=== PATIENT | male | born 1970 | race Caucasian/White ===

== ENCOUNTER 2020-01-04 13:01 | Emergency (ER) | payer OTHER, SELFPAY ==
--- NOTE | 2020-01-04 13:00 | DI.RAD_ITS ---
EXAM: XR SHOULDER RT COMPLETE 2+V CLINICAL HISTORY: Pain, repetitive motion. TECHNIQUE: 2D digital imaging was performed. COMPARISON: No exams were available for comparison FINDINGS: BONES: No acute fracture is present. No bony destructive lesion is seen. JOINTS: No dislocation present. Mild degenerative changes at the acromioclavicular joint. SOFT TISSUE: Normal. IMPRESSION: Mild degenerative changes of the AC joint. DATA REPOSITORY: RADIATION DOSE DELIVERED:
[2020-01-04 13:06] VITALS: BP 117/91; PULSE 86; TEMP 36.7; O2SAT 96
--- NOTE | 2020-01-04 14:07 | ED.GENADUL_ITS ---
Discharge Plan Disposition Patient Disposition: HOME Condition: Stable Discharge Details Clinical Impression: Shoulder pain Primary Care Provider: Brandi Cheney ED Provider: Owen Castillo Home Meds and New Rx's Prescriptions: No Action No Known Home Meds RF: 0 Discharge Instructions Instructions: Shoulder Pain (ED) Additional Instructions: Eknf-gwh-qzqnpyj medication such as Naprosyn or naproxen as directed. Gentle stretching as tolerated. Cool and/or warm compresses every 2 hours for 20 minutes. Please watch for new or worsening symptoms and return to the ER for any concerns. I am giving you the name and number of our local PD, Dr. Tran. If you are not seeing any improvement over the next 5-7 days with more conservative therapy, I would follow-up with orthopedics. Outpatient evaluation, PT, cortisone injection, etc. may all be indicated. Referrals: Andrez Tran MD [ [facility] STAFF PHYSICIAN] - Medical Decision Making 49-year-old gentleman who is right-hand dominant, presents with right shoulder pain for 2 months. Clinically he presents more like a calcific tendinitis, impingement syndrome, etc. versus acute fracture, dislocation, rotator cuff tear, etc. Given symptoms of been going on for 2 months I do believe an x-ray at this time is reasonable. Patient is agreeable to this plan. He appears well, nontoxic. Neuro, tendon, vascular intact. X-ray of the right shoulder read by me as no acute fracture. Radiology agrees and believes there is mild degenerative changes at the AC joint. Clinically patient does not have point tenderness over the AC joint. Discussed x-ray findings and treatment with patient. He declined sling. He is agreeable to a trial therapy of oral anti-inflammatories, gentle stretching, cool and/or warm compresses. I will give him the name and number of our local orthopedic team to follow-up with if he is not doing better with conservative therapy. He understands that outpatient work-up including physical therapy, cortisone injection, MRI, etc. it may all be indicated. Medical Records Medical records reviewed: Yes I reviewed the patient's medical records. HPI General Mode of arrival: ambulatory . Date/Time Provider Initiated Documentation: 01/04/20 13:10 . Limitations to Documentation: no limitations . Information obtained by: patient . HPI Narrative: This is a 49-year-old gentleman who is right-hand dominant, denies significant past medical history. He reports at work he does lifting, repetitive motion, etc. Roughly 2 months ago he went to toss something, was working around I level, and felt pain in his right shoulder. The pain has been constant, it is worse with movement especially over 90 degrees. Occasionally he gets shooting pains down his right arm. He denies any true numbness, tingling, weakness. Denies any pain that radiates into his back or into his chest. He has not tried any bhrw-nnm-aujtpxw medications for his symptoms. He was researching online, wonders if a cortisone injection would help Related Data Home Medications Medication Instructions Recorded Confirmed Unknown [No Known Home Meds] 01/04/20 01/04/20 Allergies Allergy/AdvReac Type Severity Reaction Status Date / Time No Known Allergies Allergy Unverified 01/04/20 13:10 General Stated Complaint: Orthopedic OUSMANE: 4 Review of Systems Constitutional Constitutional: Denies fever(s) and Denies weakness Cardiovascular Cardiovascular: Denies chest pain and Denies dyspnea Respiratory Respiratory: Denies cough and Denies dyspnea Musculoskeletal Musculoskeletal: Denies back pain, Reports arthralgias, Denies numbness, Denies stiffness and Denies tingling Integumentary/Breasts Skin/Breast: Denies erythema Neurologic Neurologic: Denies numbness, Denies tingling and Denies weakness [facility], [facility] Social History Smoking/Tobacco Use Status: Never Smoking risk assessment performed?: Yes Alcohol Intake: never Drug use: Never Substance use type: does not use Do you feel safe at home: Yes Do you feel safe in your relationship?: Yes Exam Const General: cooperative, healthy appearing, comfortable and no acute distress Orientation: alert and awake [facility] Head: normal to inspection, normocephalic and atraumatic Eyes Conjunctivae: conjunctivae normal Sclera: sclerae normal Neck Neck: normal visual inspection, full ROM, trachea midline, supple and nontender Resp Effort & Inspection: normal respiratory effort and able to speak in complete sentences Cardio Rate: regular rate Rhythm: regular rhythm Back/Spine/Pelvis Back: No back tenderness Skin General skin exam: no rashes or lesions noted Neuro General: patient alert, patient awake, patient oriented x3, moves all extremities and no focal motor deficits Cognition: normal cognition Speech: speech normal Gait: normal gait Motor: muscle tone normal throughout and strength 5/5 throughout Sensory Exam: no sensory deficits noted Extrem General: normal to inspection and capillary refill normal Right upper extremity: normal to inspection, normal capillary refill, shoulder/upper arm Details: normal to inspection, axillary nerve sensory function normal and abnormal ROM (Decreased range of motion secondary to discomfort, especially over 90 degrees) Details: pain with active ROM; no swelling, no ecchymosis, no crepitus, no deformity and no unusual warmth, elbow/forearm (Unremarkable) and wrist (Unremarkable) Left upper extremity: normal to inspection, full ROM and normal capillary refill Psych Appearance: grossly normal Mental Status: mental status grossly normal Course Vital Signs Vital signs: Vital Signs Temperature 36.7 C 01/04/20 13:06 Pulse 86 01/04/20 13:06 Blood Pressure 117/91 H 01/04/20 13:06 Pulse Oximetry 96 01/04/20 13:06 Temperature 36.7 C 01/04/20 13:06 Temperature Source Temporal Artery Scan 01/04/20 13:06 Pulse 86 01/04/20 13:06 Respiratory Effort Non-Labored 01/04/20 13:08 Blood Pressure 117/91 H 01/04/20 13:06 Blood Pressure Position Sitting 01/04/20 13:06 Pulse Oximetry 96 01/04/20 13:06 Oxygen Delivery Method Room Air 01/04/20 13:06 Oxygen Flow Rate 0 01/04/20 13:06 Pain Level 8 01/04/20 13:06
== END 2020-01-04 14:25 | disposition home or self-care (01) ==
PROVIDERS: Emergency Provider Physician Assistant; PCP Nurse Practitioner Family
DX: M25.511 Pain in right shoulder (principal); M70.811 Other soft tissue disorders related to use, overuse and pressure, right shoulder
CPT/HCPCS: 99283; 73030

== ENCOUNTER → 2020-02-25 14:56 | Outpatient (REF) | payer OTHER, SELFPAY ==
[2020-02-25 13:38] LABS: Anion Gap 8.7 mmol/L (3-11); BUN 17 mg/dL (7-18); CO2 24.3 mmol/L (21.0-32.0); Calcium 8.9 mg/dL (8.5-10.1); Calculated LDL 151 mg/dL (<100); Chloride 108 mmol/L (98-107); Cholesterol 238 mg/dL (<200); Glucose 119 mg/dL (74-106); HDL Cholesterol 48 mg/dL (40-60); Potassium 4.3 mmol/L (3.5-5.1); Sodium 141 mmol/L (136-145); Triglyceride 197 mg/dL (<150)
== END ==
LOC: NCHCN 14:56
PROVIDERS: PCP Nurse Practitioner Family; Visit Provider Nurse Practitioner Family
DX: Z00.00 Encounter for general adult medical examination without abnormal findings (principal); R53.83 Other fatigue
CPT/HCPCS: 80048; 80061

== ENCOUNTER 2020-08-08 08:38 | Outpatient (CLI) | payer OTHER, SELFPAY ==
--- NOTE | 2020-08-08 08:50 | DI.RAD_ITS ---
Exam(s) XR SHOULDER RT COMPLETE 2+V XR HUMERUS RT EXAM: XR SHOULDER RT COMPLETE 2+V CLINICAL HISTORY: right shoulder pain TECHNIQUE: COMPARISON: CR XR SHOULDER RT COMPLETE 2+V from 01/04/2020 CR XR HUMERUS RT from 08/08/2020 CR XR HUMERUS RT from 08/08/2020 FINDINGS: Two views of the shoulder and two views of the humerus were obtained. There is a metallic foreign maria e dy projected in the proximal to mid medial upper arm. There are minimal hypertrophic degenerative ch anges of the AC joint glenohumeral joint. No other significant bony or soft tissue abnormality seen involving the shoulder or humerus. IMPRESSION: RADIATION DOSE DELIVERED: Total DLP
== END 2020-08-08 08:39 | disposition home or self-care (01) ==
PROVIDERS: PCP Nurse Practitioner Family; Referring Provider Nurse Practitioner Family; Visit Provider Student in an Organized Health Care Education/Training Program
DX: M25.511 Pain in right shoulder (principal); M79.5 Residual foreign body in soft tissue
CPT/HCPCS: 73030; 73060

== ENCOUNTER 2020-08-24 02:14 | Outpatient (CLI) | payer OTHER, SELFPAY ==
--- NOTE | 2020-08-24 06:45 | DI.MRI_ITS ---
Exam(s) MR UPPER JOINT RT WO EXAM: MR UPPER JOINT RT WO CLINICAL HISTORY: r/o rotator cuff tear,RT SHOULDER PAIN, M25.511. TECHNIQUE: Multiplanar multisequence MRI was performed. COMPARISON: Plain films 08 August 2020 FINDINGS: A metallic density seen in the soft tissues in the upper arm on previous plain films creates artifact in the lower portion of the images and limits fat suppression. Bones: There is no fracture or contusion pattern. The acromioclavicular joint is normal. There is a small am ount of fluid in the subacromial subdeltoid and subcoracoid versus. There is minimal glenohumeral jagruti int fluid.. Rotator Cuff: The supraspinatus tendon shows a full-thickness tear anteriorly with retraction. There is no signifi cant muscle atrophy. The infraspinatus tendon is intact. The subscapularis and teres minor are norm al. Labrum and biceps anchor: The biceps tendon is located. The anchor is well maintained. The labrum is within normal limits. IMPRESSION: Full-thickness tear with retraction of the supraspinatus tendon. DATA REPOSITORY:
== END 2020-08-24 02:34 ==
PROVIDERS: PCP Nurse Practitioner Family; Visit Provider Student in an Organized Health Care Education/Training Program
DX: M75.101 Unspecified rotator cuff tear or rupture of right shoulder, not specified as traumatic (principal); M75.81 Other shoulder lesions, right shoulder
CPT/HCPCS: 73221

== ENCOUNTER 2021-05-11 03:19 | Outpatient (CLI) | payer OTHER, SELFPAY ==
[2021-05-11 11:46] LABS: Source Nasal/Nares
[2021-05-11 14:25] LABS: COVID-19 PCR Negative (Negative)
== END 2021-05-11 03:20 | disposition home or self-care (01) ==
LOC: LBO 03:19
PROVIDERS: Surgery; PCP Nurse Practitioner Family; Visit Provider Surgery
DX: Z20.822 Contact with and (suspected) exposure to COVID-19 (principal)
CPT/HCPCS: 87635

== ENCOUNTER 2021-05-14 10:41 | Day surgery (SDC) | payer OTHER, SELFPAY ==
--- NOTE | 2021-05-14 07:12 | COLE_ITS ---
Colonoscopy Report Date of procedure: 05/14/21 Pre-op diagnosis general: Colon Cancer Screening Post-op diagnosis procedure note: other (rectal polyp) Procedure: Colonoscopy with polypectomy Surgeon: Patricia Davis Anesthesia Type: General:No Airway Estimated blood loss (mL): 3 Pathology: other (rectal polyp) Complications: None Disposition: same day Indications: The patient is here for Colonoscopy pre-op. He has no family history of colon cancer. He has not had any bowel habit changes. -Discussed colonoscopy bowel prep as well as the procedure. Discussed possible complications of the procedure to include bleeding, pain, perforation, missed small lesion/polyp, sore throat, aspiration and adverse reaction to the medications. Questions were answered to patient?s satisfaction. No guarantees were implied or given.? Prep: Miralax/Dulcolax Procedure Start Time: 12:09 Procedure End Time: 12:29 Retraction Time: 11 minutes Findings: One polyp Procedure Description: After informed consent was obtained the patient was taken to the procedure room and placed in a left decubitous position. Monitors were applied and a time out was done. The patients name, date of , procedure, allergies to medications and metal in their body was reviewed. The patient was then sedated. Once sedated and comfortable a rectal exam was done. External exam was normal. Internal exam revealed a normal sphincter tone and no palpable masses. The prostate felt smooth. The scope was then introduced and retro-flexed. No internal hemorrhoids, polyps or masses were identified on retro-flexion. The scope was then advanced to the cecum without difficulty. The ileocecal vlave and appendiceal orifice were identified. The prep was adequate. The scope was then slowly retracted over 11 minutes back into the rectum. Polyps were removed with cold forceps in the rectum. There was no diverticulosis noted. The scope was removed and the patient was woken up and taken back to Same day surgery in stable condition. The patient tolerated the procedure well and there were no immediate co mplications. Follow up: The patient should follow up in 3-5 years unless they develop changes in bowel habits or other new gastrointestinal complaints.
--- NOTE | 2021-05-14 07:14 | W.PM.DSUDISC ---
Discharge Plan Disposition Patient Disposition: HOME Condition: Good Discharge Details Reason For Visit: Colonoscopy Attending Provider: Patricia Davis Primary Care Provider: Brandi Cheney Home Meds and New Rx's Prescriptions: Discontinued bisacodyl [Dulcolax (bisacodyl)] 5 mg tablet,delayed release (DR/EC) 5 mg PO ONCE Qty: 4 0RF Rx Instructions: Take according to provider's instructions for colonoscopy prep. polyethylene glycol 3350 17 gram/dose powder 17 g PO ONCE Qty: 238 0RF Rx Instructions: To be taken as directed by prescriber's office for colonoscopy prep. Discharge Instructions Additional Instructions: Findings: one polyp Follow up: 5 years Please call if you develop: fevers >101.5 Nausea or Vomiting Abdominal pain that is not transient Rectal bleeding that is more then a tbsp A hard abdomen and inability to pass gas DAY SURGERY UNIT POST ENDOSCOPY INSTRUCTIONS Instructions for everyone who is given Anesthesia: For your safety, please do the following for the next 24 Hours: a. Do not drive or operate dangerous equipment b. Do not drink alcohol beverages or use any recreational drugs for the first 24 hours or while taking pain medications. The medications in your body may have a reaction that can be dangerous. c. Do not make any important decisions or sign any important papers 1. Generally there are no restrictions on your activity after a day or so has gone by, but you may feel a bit fatigued for a few days. 2. After you arrive home you may have a light meal and return to a normal diet as you can tolerate it without feeling sick to your stomach. 3. After surgery, you may feel pain or discomfort. This should be only transient, but if it persists please contact your doctor. 4. If there are any questions regarding the findings of your procedure, please feel free to contact your doctor. 6. If you are unable to contact your doctor with a problem, contact the hospital at [phone]. 7. Continue all your regular medications unless directed otherwise. I understand the above instructions and have no questions. Signature of Patient or Responsible Adult Escort Date/Time Name of Responsible Adult Escort Signature of Nurse Date/Time Activity:: Activity as Tolerated Diet:: As Tolerated Discharge Orders Discharge Orders: Discharge Order (Routine); Ordered 05/14/21 Ordered By: Patricia Davis
[2021-05-14 11:16] VITALS: BP 125/96; PULSE 75; RESP 18; TEMP 36.3; O2SAT 99
[2021-05-14] MEDS: Lactated Ringers 1,000 ML 80 ML IV (11:47)
--- NOTE | 2021-05-14 11:52 | W.ANESPRE ---
General Info Date of Service Date Performed: 05/14/21 Height: 5 ft 8 in Weight: 90.945 kg Body Mass Index (BMI): 30.4 Surgical Procedure: Operation Date: 05/14/21 11:50 Proposed Procedure Side Surgeon p Colonoscopy Patricia Davis MD Meds Allergies and Home Medications Allergies Allergy/AdvReac Type Severity Reaction Status Date / Time No Known Allergies Allergy Unverified 05/03/21 09:00 Home Medication Medication Instructions Recorded bisacodyl 5 mg tablet,delayed 5 mg PO ONCE #4 tab 05/03/21 release (Dulcolax (bisacodyl)) polyethylene glycol 3350 17 17 g PO ONCE #238 g 05/03/21 gram/dose oral powder Current Visit Medications: Current Medications Generic Name Dose Route Start Last Admin Trade Name Freq PRN Reason Stop Dose Admin Hyoscyamine Sulfate 0.125 mg 05/14/21 07:14 Hyoscyamine 0.125 Mg Sl/Oral/Chew SL DIRECTED PRN Ringer's Solution 1,000 mls @ 80 mls/hr 05/14/21 06:00 05/14/21 11:47 IV 06/10/21 23:59 80 mls/hr INFUSION JORGE Administration IV Miscellaneous Supplies 1 each 05/14/21 06:00 Iv Access IV 06/10/21 23:59 DIRECTED JORGE Ondansetron HCl 4 mg 05/14/21 07:14 Ondansetron 4 Mg/2 Ml Vial IVP Q4H PRN PRN Nausea / Vomiting Sodium Chloride 0 ml 05/14/21 06:00 Normal Saline Flush 10 Ml Syr IV 06/10/21 23:59 PRN PRN Sodium Chloride 0 ml 05/14/21 06:00 Normal Saline 10 Ml Vial IJ 06/10/21 23:59 DIRECTED PRN Sterile Water 0 ml 05/14/21 06:00 Water,Injection,Sterile 10 Ml Vial IJ 06/10/21 23:59 DIRECTED PRN PFSH Active Problems Active Problems: Problem Status Onset Code Alcohol use Z72.89 Screening for colon cancer Z12.11 Medical History Medical History Foreign body (FB) in soft tissue Impingement syndrome of right shoulder No-show for appointment Tendonitis of long head of biceps brachii of right shoulder Traumatic incomplete tear of right rotator cuff Tobacco Smoking/Tobacco Use Status: Never Alcohol Alcohol Intake: never Details: Reports drinking 6 pk/day Substance Use Substance use: Never Substance use type: does not use Vital Signs and Lab Results Vital Signs Most Recent Vital Signs in EMR: Most Recent Vital Signs Temp Pulse Resp BP Pulse Ox 36.3 C L 75 18 125/96 H 99 05/14/21 11:16 05/14/21 11:16 05/14/21 11:16 05/14/21 11:16 05/14/21 11:16 Lab Results Blood Type / Crossmatch: No Data to Display Complete Blood Count: No Data to Display Complete Metabolic Panel: No Data to Display Liver Function Panel: No Data to Display Coagulation Panel: No Data to Display Cardiac Panel: No Data to Display Arterial Blood Gas: No Data to Display Venous Blood Gas: No Data to Display Pancreas Panel: No Data to Display Thyroid Panel: No Data to Display Infectious Disease: Coronavirus (COVID-19)(PCR) Negative (Negative) 05/11/21 08:40 05/11/21 Coronavirus 2019 Source Nasal/Nares 05/11/21 08:40 05/11/21 Blood Cultures: No Data to Display Toxicology Panel: No Data to Display Anesthesia Assessment and Plan Anesthesia History Personal History: No History of General Anesthesia Family History: No Family History of Anesthesia Complications Exercise Tolerance Exercise Tolerance: Metabolic Equivalents>4 Pertinent Negatives Pertinent Negatives: No Symptoms of GERD Cardiac & Pulmonary Exam Cardiac Exam: Normal S1/S2 Heart Sounds Pulmonary Exam: Clear Bilateral Breath Sounds Implantable Cardiac Device Does patient have a Pacemaker or an ICD?: No Airway Exam Known Difficult Airway: No Mallampati Class: 1 Mouth Opening: Normal (> 3cm) Thyromental Distance: Greater than 3 cm Neck Range of Motion: Full ROM Neck Circumference: Normal Teeth Condition: Normal Dentition ASA Classification ASA Score: ASA 2 Emergency Case?: No NPO Status NPO Status: NPO Clears >2 hours, Solids >8 hours Anesthesia Plan Resuscitation Status: Full Code Anesthesia Technique: General Anesthesia Airway Planned: Natural Airway Monitors Used: Standard Monitors
[2021-05-14 11:54] VITALS: BMI 30.4
--- NOTE | 2021-05-14 12:26 | BOWEL_PTH ---
PATIENT: Ethan Sharif LOC: [facility] U#:[id number] AGE/SX: 51/M ROOM: RE05/14/[address]: Patricia Davis MD : 1970 BED: DIS: 05/14/2021 SPEC #: [id number] RECD: 05/14/21 13:12 STATUS: [facility] #: [id number] CARLOS: 05/14/21 12:[address]: Patricia Davis DEPT: Surgical Specimen RECD BY: Danita Hugo ENTERED: 05/14/21 13:13 SP TYPE: Bowel OTHR DR: Brandi Cheney Tissues: 1 - BIOPSY BOWEL Procedures: GROSS AND MICRO LEVEL 4 Comments: [id number]
[2021-05-14 12:38] VITALS: BP 118/82; PULSE 95; RESP 16; TEMP 36.1; O2SAT 93
--- NOTE | 2021-05-14 13:00 | W.ANESPOSTOP ---
Postoperative Evaluation Date, Time and Location Date Performed: 05/14/21 Time Performed: 12:45 Patient Location: Day Surgery Unit Vital Signs Most Recent Imported Vital Signs: Most Recent Vital Signs Temp Pulse Resp BP Pulse Ox 36.1 C L 95 H 16 118/82 93 05/14/21 12:38 05/14/21 12:38 05/14/21 12:38 05/14/21 12:38 05/14/21 12:38 Pain Score Most Recent Pain Score: Most Recent Pain Score Pain Level 0 05/14/21 12:38 Assessment Mental Status: Awake (Alert & Oriented to Patient Baseline) Airway and Respiratory Function: Patent airway with normal (patient baseline) respiratory exam Cardiovascular Function: Hemodynamically Stable Hydration Status: Adequately Hydrated Nausea & Vomiting: No Nausea or Vomiting Pain: Pt. Denies Any Pain Peripheral Nerve Block: Patient did not receive a nerve block
[2021-05-14 13:15] VITALS: BP 122/94; PULSE 76; RESP 16; TEMP 36.1; O2SAT 100
== END 2021-05-14 13:35 | disposition home or self-care (01) ==
LOC: SUR 10:41
PROVIDERS: PCP Nurse Practitioner Family; Visit Provider Surgery
PROC: 0DJD8ZZ Inspection of Lower Intestinal Tract, Via Natural or Artificial Opening Endoscopic (ICD-10-PCS; CPT 45378; principal; 2021-05-14 11:45)
DX: Z12.11 Encounter for screening for malignant neoplasm of colon (principal); D12.8 Benign neoplasm of rectum
CPT/HCPCS: 45380; 88305; J2704